=== PATIENT | female | born 1990 ===

== ENCOUNTER → 2019-04-30 | Outpatient (CLI) | payer BC | END | disposition home or self-care (01) | LOC: LABWHC1 16:19 | PROVIDERS: ATTEND Obstetrics & Gynecology | DX: N92.6 Irregular menstruation, unspecified (principal) | CPT/HCPCS: 36415; 84702 ==

== ENCOUNTER → 2019-05-04 | Outpatient (CLI) | payer BC | END | disposition home or self-care (01) | LOC: LABWHC1 13:38 | PROVIDERS: ATTEND Obstetrics & Gynecology | DX: Z32.01 Encounter for pregnancy test, result positive (principal); N91.2 Amenorrhea, unspecified | CPT/HCPCS: 36415; 84702 ==

== ENCOUNTER 2019-11-16 12:16 | Outpatient (CLI) | payer BC ==
[2019-11-16 13:10] LABS: Basophils % (A) 0 %; Eosinophils # (A) 0.1 k/uL (0-0.7); Eosinophils % (A) 1 %; HCT 36.4 % (34.0-46.0); HGB 12.1 gm/dL (11.4-16.0); Lymphocytes # (A) 1.6 k/uL (1.0-4.8); Lymphocytes % (A) 17 %; MCHC 33.2 g/dL (31.0-37.0); MCV 84.3 fL (80.0-100.0); Monocytes # (A) 0.3 k/uL (0-1.0); Monocytes % (A) 4 %; Neutrophils # (A) 7.3 k/uL (1.3-7.7); Neutrophils % (A) 77 %; Platelet Count 217 k/uL (150-450); RBC 4.31 m/uL (3.80-5.40); RDW 14.6 % (11.5-15.5); WBC 9.5 k/uL (3.8-10.6)
[2019-11-16 13:17] LABS: Appearance,Urine Cloudy (Clear); Bacteria,Urine Rare /hpf; Bilirubin,Urine Negative (Negative); Blood,Urine Negative (Negative); Calcium Oxalate Crystals,Urine Rare /hpf; Color,Urine Yellow; Glucose,Urine (UA) Negative (Negative); Ketones,Urine Negative (Negative); Leukocyte Esterase,Urine Negative (Negative); Mucus,Urine Rare /hpf; Nitrite,Urine Negative (Negative); Protein,Urine Trace (Negative); RBC,Urine <1 /hpf (0-5); Specific Gravity,Urine 1.015 (1.001-1.035); Sperm,Urine Rare /hpf; Squamous Epithelial Cell,Urine 3 /hpf (0-4); Urobilinogen,Urine <2.0 mg/dL (<2.0); WBC,Urine 2 /hpf (0-5)
[2019-11-16 13:20] LABS: Protein/Creatinine Ratio,Urine 0.205
[2019-11-16 13:29] LABS: ALT 13 U/L (4-34); AST 19 U/L (14-36); African American GFR (CKD) >90 (>60 ml/min/1.73 sqM); Blood Urea Nitrogen 6 mg/dL (7-17); LDH 411 U/L (313-618); Non-African American GFR(CKD) >90 (>60 ml/min/1.73 sqM); Uric Acid 5.1 mg/dL (3.7-7.4)
--- NOTE | 2019-11-18 09:45 | P.MSEPDOC ---
Presenting Problems - Arrival Data Date of Arrival on Unit: 11/16/19 Time of Arrival on Unit: 12:16 Mode of Transport: Ambulatory - Complaint OB-Reason for Admission/Chief Complaint: PIH Comment: pt sent over from the office by Dr. Argueta for PIH workup as she had some elevated bp's Medical History - Information : 1 Para: 0 Term: 0 : 0 Abortions: Spontaneous or Elective: 0 Number of Living Children: 0 - Gestational Age Gestational Age by MARGARET (wks/days): 31 Weeks and 6 Days - History Complications: GDM Review of Systems - Review of Systems Constitutional: No problems Breast: No problems ENT: No problems Cardiovascular: No problems Respiratory: No problems Gastrointestinal: No problems Genitourinary: No problems Musculoskeletal: No problems Neurological: No problems Skin: No problems Physician Notification (Pre) - Physician Notified Physician Notified Date: 11/16/19 Physician Notified Time: 13:40 New Order Received: Yes - Notification Comment Comment: lab results given to Dr. Argueta, all wnl, only trace protein discharge pt home, follow up with KATELYN on Friday and Dr. Pimentel on Disposition - Disposition OB Disposition: Discharge to home Discharge Date: 11/16/19 Discharge Time: 14:00 I agree with the RN Medical Screening Exam: Yes Risk & Benefit of care provided described in d/c instruction: Yes Diagnosis: GESTATIONAL HTN W/O SIGNIFICANT PROTEINURIA, THIRD TRIMESTER
== END 2019-11-16 14:00 | disposition home or self-care (01) ==
LOC: FBPOP 12:16
PROVIDERS: ATTEND Obstetrics & Gynecology
DX: O13.3 Gestational [pregnancy-induced] hypertension without significant proteinuria, third trimester (principal); Z3A.31 31 weeks gestation of pregnancy
CPT/HCPCS: 59025; 81001; 82565; 82570; 83615; 84156; 84450; 84460; 84520; 84550; 85025

== ENCOUNTER 2019-12-29 16:09 | Inpatient (IN) | payer BC ==
[~2019-12-29 16:09] MED LIST: CHLOROPROCAINE 3% 30 MG/ML 20 ML VIAL ONE; ROPIVACAINE 5MG/ML 20ML VIAL ONE; SODIUM CHLORIDE 0.9% 100 ML BAG ONE; fentaNYL (PF) 50 MCG/ML 5 ML AMP ONE
[2019-12-29] MEDS ORDERED: DINOPROSTONE 10 MG INSERT.ER VAGINAL ONE (16:24)
[2019-12-29 16:37] LABS: Glucose,Whole Blood 130 mg/dL (75-99)
[2019-12-29] MEDS ORDERED: metFORMIN 500 MG TAB PO ONE (21:00)
[2019-12-30] MEDS ORDERED: LIDOCAINE 0.5% (PF) 5 MG/ML (50 ML SDV) SQ PRN (05:00)
[2019-12-30] MEDS ORDERED: TERBUTALINE 1 MG/ML VIAL SQ PRN (05:00)
[2019-12-30] MEDS ORDERED: METHYLERGONOVINE 0.2 MG/ML 1 ML AMP IM PRN (05:00)
[2019-12-30] MEDS ORDERED: CARBOPROST TROMETHAMINE 250 MCG/ML 1 ML AMP IM PRN (05:00)
[2019-12-30] MEDS ORDERED: OXYTOCIN 10 UNIT/ML 1 ML VIAL IM PRN (05:00)
[2019-12-30 05:41] LABS: Glucose,Whole Blood 91 mg/dL (75-99)
[2019-12-30 05:41] LABS: Basophils % (A) 0 %; Eosinophils # (A) 0.1 k/uL (0-0.7); Eosinophils % (A) 1 %; HCT 34.8 % (34.0-46.0); HGB 11.6 gm/dL (11.4-16.0); Lymphocytes # (A) 1.9 k/uL (1.0-4.8); Lymphocytes % (A) 18 %; MCH 27.7 pg (25.0-35.0); MCHC 33.2 g/dL (31.0-37.0); MCV 83.3 fL (80.0-100.0); Mean Platelet Volume 7.9; Monocytes # (A) 0.3 k/uL (0-1.0); Monocytes % (A) 3 %; Neutrophils # (A) 7.8 k/uL (1.3-7.7); Neutrophils % (A) 76 %; Platelet Count 219 k/uL (150-450); RBC 4.17 m/uL (3.80-5.40); RDW 14.7 % (11.5-15.5); WBC 10.3 k/uL (3.8-10.6)
[2019-12-30] MEDS: LACTATED RINGERS 1,000 ML IV SCH ×4 (05:44→23:55)
[2019-12-30] MEDS: OXYTOCIN 30 UNITS/500 ML NS 30 UNIT in SALINE 1 500ML.BAG IV SCH (05:48)
[2019-12-30 07:18] LABS: Glucose,Whole Blood 81 mg/dL (75-99)
[2019-12-30 09:09] LABS: Glucose,Whole Blood 76 mg/dL (75-99)
[2019-12-30 11:26] LABS: Glucose,Whole Blood 72 mg/dL (75-99)
[2019-12-30 13:18] LABS: Glucose,Whole Blood 70 mg/dL (75-99)
[2019-12-30] MEDS: BUTORPHANOL 1 MG/ML 1 ML VIAL IV PRN ×2 (14:36→17:46)
[2019-12-30 14:41] LABS: Glucose,Whole Blood 77 mg/dL (75-99)
[2019-12-30 17:10] LABS: Glucose,Whole Blood 73 mg/dL (75-99)
[2019-12-30 19:08] LABS: Glucose,Whole Blood 67 mg/dL (75-99)
[2019-12-30 21:18] LABS: Glucose,Whole Blood 70 mg/dL (75-99)
[2019-12-30] MEDS ORDERED: CLINDAMYCIN 600 MG in DEXTROSE 5% IN WATER 50 ML IVPB SCH ×2 (21:26)
[2019-12-30] MEDS: CLINDAMYCIN 900 MG in DEXTROSE 5% IN WATER 50 ML IVPB SCH ×2 (22:11)
[2019-12-30 23:42] LABS: Glucose,Whole Blood 77 mg/dL (75-99)
[2019-12-31 01:23] LABS: Glucose,Whole Blood 84 mg/dL (75-99)
[2019-12-31] MEDS: BUTORPHANOL 1 MG/ML 1 ML VIAL IV PRN (02:06)
[2019-12-31 03:55] LABS: Glucose,Whole Blood 75 mg/dL (75-99)
[2019-12-31 06:05] LABS: Glucose,Whole Blood 82 mg/dL (75-99)
[2019-12-31] MEDS: CLINDAMYCIN 900 MG in DEXTROSE 5% IN WATER 50 ML IVPB SCH ×2 (06:05)
[2019-12-31] MEDS: OXYTOCIN 30 UNITS/500 ML NS 30 UNIT in SALINE 1 500ML.BAG IV SCH ×2 (07:35→09:41)
[2019-12-31 07:42] LABS: Glucose,Whole Blood 97 mg/dL (75-99)
--- NOTE | 2019-12-31 08:16 | P.HPOB ---
History of Present Illness H&P Date: 12/29/19 Chief Complaint: Induction of labor, DM, HTN 29 year old presents at 38 weeks for 2 stage induction of labor. Her cervix is closed, thick and -3. heart tones 135 with moderate variability and reactive. She has gestational diabetes on metformin and chronic hypertension on nifedipine. Her blood pressures have been increasing making induction of labor indicated. Review of Systems All systems: negative Constitutional: Denies chills, Denies fever Eyes: denies blurred vision, denies pain Ears, nose, mouth and throat: Denies headache, Denies sore throat Cardiovascular: Denies chest pain, Denies shortness of breath Respiratory: Denies cough Gastrointestinal: Denies abdominal pain, Denies diarrhea, Denies nausea, Denies vomiting Genitourinary: Denies dysuria, Denies hematuria Musculoskeletal: Denies myalgias Integumentary: Denies pruritus, Denies rash Neurological: Denies numbness, Denies weakness Psychiatric: Denies anxiety, Denies depression Endocrine: Denies fatigue, Denies weight change Past Medical History Past Medical History: Diabetes Mellitus, Hypertension Additional Past Medical History / Comment(s): gestational diabetes History of Any Multi-Drug Resistant Organisms: None Reported Past Surgical History: No Surgical Hx Reported Past Anesthesia/Blood Transfusion Reactions: No Reported Reaction Past Psychological History: Unable to Obtain Smoking Status: Never smoker Past Alcohol Use History: None Reported Past Drug Use History: None Reported - Past Family History Mother Family Medical History: Hyperlipidemia, Hypertension Father Family Medical History: Hyperlipidemia, Hypertension Additional Family Medical History / Comment(s): diverticulitis Medications and Allergies Home Medications Medication Instructions Recorded Confirmed Type Aspirin 81 mg PO DAILY 11/16/19 12/29/19 History NIFEdipine [Procardia XL] 60 mg PO DAILY 11/16/19 12/29/19 History metFORMIN HCL [metFORMIN HCL ER 1,000 mg PO DAILY 11/16/19 12/29/19 History Osmotic] Pnv No.95/Ferrous Fum/Folic AC 1 tablet PO DAILY 12/29/19 12/29/19 History [ Multivitamin Tablet] Allergies Allergy/AdvReac Type Severity Reaction Status Date / Time amoxicillin Allergy Rash/Hives Verified 11/16/19 12:24 Exam Osteopathic Statement: *. No significant issues noted on an osteopathic structural exam other than those noted in the History and Physical/Consult. Intake and Output 12/30/19 12/31/19 12/31/19 22:59 06:59 14:59 Other: # Voids 2 2 Heart: Regular rate and rhythm Lungs: Clear to auscultation bilaterally Abdomen: Soft, nontender Extremities: Negative Homans signl Results Result Diagrams: 12/30/19 05:30 Abnormal Lab Results - Last 24 Hours (Table) 12/30/19 12/30/19 12/30/19 Range/Units 11:24 13:16 17:09 POC Glucose (mg/dL) 72 L 70 L 73 L (75-99) mg/dL 12/30/19 12/30/19 Range/Units 19:06 21:17 POC Glucose (mg/dL) 67 L 70 L (75-99) mg/dL Assessment and Plan (1) 38 weeks gestation of Current Visit: Yes Status: Acute Code(s): Z3A.38 - 38 WEEKS GESTATION OF SNOMED Code(s): 66396889 (2) Hypertension Current Visit: Yes Status: Acute Code(s): I10 - ESSENTIAL (PRIMARY) HYPERTENSION SNOMED Code(s): 15522771 (3) Gestational diabetes Current Visit: Yes Status: Acute Code(s): O24.419 - GESTATIONAL DIABETES ME LLITUS IN , UNSP CONTROL SNOMED Code(s): 93541060 Plan: 1. Admit to family place 2. Cervidil placement and then amniotomy and Pitocin the morning 3. Monitor blood sugars 4. Continue blood pressure medicine and monitoring closely
[2019-12-31] MEDS: LACTATED RINGERS 1,000 ML IV SCH (08:47)
[2019-12-31 09:54] LABS: Glucose,Whole Blood 71 mg/dL (75-99)
[2019-12-31 11:40] LABS: Glucose,Whole Blood 75 mg/dL (75-99)
[2019-12-31] MEDS ORDERED: CITRIC ACID-SODIUM CITRATE 15 ML CUP PO ONE (12:05)
[2019-12-31] MEDS ORDERED: ceFAZolin 3 GM in SODIUM CHLORIDE 0.9% 100 ML IVPB ONE (12:05)
[2019-12-31] MEDS ORDERED: MORPHINE SULFATE (PF) 0.3 MG/0.3 ML SYR ONE (12:30)
[2019-12-31] MEDS ORDERED: ONDANSETRON 4 MG/2 ML VIAL ONE (12:30)
[2019-12-31] MEDS ORDERED: OXYTOCIN 10 UNIT/ML 1 ML VIAL ONE (12:30)
[2019-12-31] MEDS ORDERED: KETOROLAC 30 MG/ML 1 ML VIAL ONE (12:30)
[2019-12-31] MEDS ORDERED: diphenhydrAMINE 50 MG/ML 1 ML VIAL IVP PRN ×3 (12:51→13:29)
[2019-12-31] MEDS ORDERED: NALBUPHINE 10 MG/ML (1 ML AMP) IV PRN (12:51)
[2019-12-31] MEDS ORDERED: NALOXONE 0.4 MG/ML 1 ML VIAL IV PRN (12:51)
[2019-12-31] MEDS ORDERED: HYDROmorphone 0.5 MG/0.5 ML SYRINGE IVP PRN (12:51)
[2019-12-31] MEDS ORDERED: ONDANSETRON 4 MG/2 ML VIAL IVP PRN (12:51)
[2019-12-31] MEDS ORDERED: diphenhydrAMINE 50 MG CAP PO PRN (13:29)
[2019-12-31] MEDS ORDERED: ZOLPIDEM 5 MG TAB PO PRN (13:29)
[2019-12-31] MEDS ORDERED: METOCLOPRAMIDE 5 MG/ML 2 ML VIAL IVP PRN (13:29)
[2019-12-31] MEDS ORDERED: HYDROcodone/APAP 7.5-325MG 1 EACH TAB PO PRN (13:29)
[2019-12-31] MEDS ORDERED: LANOLIN CREAM 5 GM TUBE TOPICAL PRN (13:29)
[2019-12-31] MEDS ORDERED: diphenhydrAMINE 25 MG CAP PO PRN (13:29)
[2019-12-31] MEDS ORDERED: SIMETHICONE 80 MG CHEWABLE PO PRN (13:29)
[2019-12-31] MEDS ORDERED: LACTATED RINGERS 1,000 ML IV SCH (13:30)
[2019-12-31] MEDS ORDERED: OXYTOCIN 20 UNITS/1000 ML NS 1,000 ML IV SCH (13:30)
[2019-12-31] MEDS: SENNOSIDES-DOCUSATE SODIUM 1 EACH TAB PO SCH (20:21)
[2019-12-31] MEDS: ceFAZolin 3 GM in SODIUM CHLORIDE 0.9% 100 ML IVPB SCH (20:34)
[2019-12-31] MEDS ORDERED: NIFEdipine XL 30 MG TAB.ER.24 PO PRN (21:17)
[2019-12-31] MEDS: KETOROLAC 30 MG/ML 1 ML VIAL IVP PRN (21:27)
[2020-01-01] MEDS: KETOROLAC 30 MG/ML 1 ML VIAL IVP PRN (03:37)
[2020-01-01] MEDS: ceFAZolin 3 GM in SODIUM CHLORIDE 0.9% 100 ML IVPB SCH (04:59)
[2020-01-01 06:21] LABS: Basophils % (A) 0 %; Eosinophils # (A) 0.1 k/uL (0-0.7); Eosinophils % (A) 1 %; HCT 31.6 % (34.0-46.0); HGB 10.8 gm/dL (11.4-16.0); Lymphocytes # (A) 1.1 k/uL (1.0-4.8); Lymphocytes % (A) 11 %; MCH 29.2 pg (25.0-35.0); MCHC 34.2 g/dL (31.0-37.0); MCV 85.5 fL (80.0-100.0); Mean Platelet Volume 7.9; Monocytes # (A) 0.4 k/uL (0-1.0); Monocytes % (A) 4 %; Neutrophils # (A) 8.5 k/uL (1.3-7.7); Neutrophils % (A) 83 %; Platelet Count 206 k/uL (150-450); RDW 14.7 % (11.5-15.5); WBC 10.3 k/uL (3.8-10.6)
--- NOTE | 2020-01-01 06:51 | P.PN ---
Progress Note - Text Progress Note Date: 01/01/20 Postoperative day 1 status post section under epidural anesthesia, and epidural morphine given for postoperative analgesia, patient doing well, there is no anesthesia related complications, Patient had no headache, vital signs stable , Assessment and plan= postop day 1 status post , doing well there is no anesthesia related complication.
[2020-01-01] MEDS: ACETAMINOPHEN TAB 325 MG TAB PO PRN ×3 (08:03→20:45)
[2020-01-01] MEDS: SENNOSIDES-DOCUSATE SODIUM 1 EACH TAB PO SCH ×2 (08:03→20:46)
--- NOTE | 2020-01-01 08:27 | P.OP ---
Date of Procedure: 12/31/19 Preoperative Diagnosis: 1. at 38 weeks and 2 days 2. Gestational diabetes A2 3. Chronic hypertension 4. Failure to progress Postoperative Diagnosis: 1. at 38 weeks and 2 days 2. Gestational diabetes A2 3. Chronic hypertension 4. Failure to progress Procedure(s) Performed: Primary low transverse Anesthesia: epidural Surgeon: Jodi Argueta Press Setter #1: Kiesha Moran Estimated Blood Loss (ml): 775 IV fluids (ml): 500 Urine output (ml): 200 Pathology: other (Placenta) Condition: stable Disposition: floor Indications for Procedure: 29-year-old presented at 38 weeks for induction of labor. She has gestational diabetes and chronic hypertension that was controlled for most of her until last week with nifedipine 60 mg daily. Her gestational diabetes was controlled with metformin. Cervidil was placed, of 12/29/2019 when she was closed, thick, high. heart tones were 135 with moderate variability and reactive. By the morning her cervix was still fingertip dilated and thick. Pitocin was started. She spontaneously ruptured around 10 AM with clear fluid. heart tones remained category 1. Patient had position changes and Pitocin titration. She did make it to 2 cm and started to get uncomfortable the next morning. Epidural was placed on the morning of 12/31/2019. heart tones remained category 1. By noon on 12/31/2019 she w as still 2 cm dilated. Informed consent was obtained and section was called. Operative Findings: Viable male, Apgars 8, 9, weight 6 lbs. 15 oz. Normal uterus, tubes, ovaries. Description of Procedure: Patient was taken to the operating room where spinal anesthesia was found be adequate. She was prepped and draped in normal sterile fashion in dorsal supine position with a leftward tilt. Pfannenstiel skin incision was made the scalpel and carried through to the underlying layer of fascia with the scalpel. Fascia was incised in midline and carried bilaterally with the Terry scissors. The superior aspect of the fascial incision was grasped with Duane clamps elevated and the underlying rectus muscles dissected off with the Terry's. Attention was then turned to inferior aspect of same incision which in a similar fashion was grasped tented up and the underlying rectus muscles dissected off with the Terry's. The rectus muscles were the midline and the peritoneum was identified tented up and entered sharply with the scalpel. The incision was extended superiorly and inferiorly with good visualization of the bladder. The bladder blade was inserted and the vesicouterine peritoneum was incised the Metzenbaums then carried bilaterally and bladder flap created digitally. A low transverse incision was then made on the uterus with the scalpel. This was carried bilaterally and digital manner. 's head delivered atraumatically, nose and mouth bulb suctioned, cord clamped and cut, infant handed off to waiting nurses. Apgars 8,9, weight 6 lbs. 15 oz. Placenta delivered manually, intact with three-vessel cord. The uterus is exteriorized and cleared of all clots and debris. The uterine incision was closed with 0 Vicryl in a running locked fashion. Second layer of the same sutures used in imbricating fashion. There are a few areas of oozing along the incision, a few figure of 8 stitches were used to obtain excellent hemostasis. Both ovaries and tubes appeared normal. The uterus was placed back into the abdomen. The peritoneum was reapproximated using 2-0 Vicryl in a running fashion. The muscles were reapproximated using 2-0 Vicryl in interrupted fashion. The fascia was reapproximated using 0 Vicryl in a running fashion. The subcutaneous tissues closed with 3-0 Vicryl running fashion. The skin was closed maurilio. Patient tolerated the procedure well, sponge and instrument counts were correct times 2 and she was taken to the recovery room in stable condition.
--- NOTE | 2020-01-01 08:29 | P.PNOBGPC ---
Subjective - Subjective Principal diagnosis: Status post primary low transverse postop day #1 Interval history: Patient seen and examined in her room. She feels very comfortable in tolerating regular diet. She has good bowel sounds but has not passed flatus yet. Her blood pressures overnight were little bit elevated but this morning after her Procardia her blood pressures are normal. Patient reports: Reports appetite normal, Reports voiding normally, Reports pain well controlled, Reports ambulating normally Objective - Vital Signs Latest vital signs: Vital Signs Temp Pulse Resp BP BP BP Pulse Ox 01/01/20 08:00 98.1 F 93 16 134/65 01/01/20 06:08 16 01/01/20 04:54 16 01/01/20 03:33 97.7 F 81 16 139/66 99 01/01/20 03:00 16 01/01/20 01:00 16 12/31/19 23:00 97.9 F 81 16 126/58 98 12/31/19 21:00 16 12/31/19 20:30 164/76 12/31/19 20:00 98.0 F 77 16 174/96 12/31/19 19:00 18 98 12/31/19 17:51 98 12/31/19 17:00 18 98 12/31/19 15:51 16 98 12/31/19 15:22 59 L 16 162/78 12/31/19 14:52 65 18 164/79 97 12/31/19 14:22 69 16 164/77 99 12/31/19 14:07 74 18 158/75 98 12/31/19 13:52 70 16 151/75 99 12/31/19 13:51 18 97 12/31/19 13:37 80 18 141/75 99 12/31/19 13:22 97 F L 79 16 137/64 97 12/31/19 12:51 97 F L 62 18 137/64 97 Intake and Output 12/31/19 01/01/20 01/01/20 22:59 06:59 14:59 Intake Total 480 Output Total 300 300 900 Balance -300 180 -900 Intake: Oral 480 Output: Urine 300 300 900 Uretheral (Dewey) 300 Other: Voiding Method Indwelling Catheter # Voids 1 - Exam Lungs: bilateral: normal Chest: Normal S1, Normal S2 Extremities: Present: normal Abdomen: Present: normal appearance, soft. Absent: distention, tenderness Incision: Present: normal, dry, intact Uterus: Present: normal, firm - Labs Labs: Abnormal Lab Results - Last 24 Hours (Table) 12/31/19 01/01/20 Range/Units 09:44 05:24 RBC 3.70 L (3.80-5.40) m/uL Hgb 10.8 L (11.4-16.0) gm/dL Hct 31.6 L (34.0-46.0) % Neutrophils # 8.5 H (1.3-7.7) k/uL POC Glucose (mg/dL) 71 L (75-99) mg/dL Assessment and Plan (1) 38 weeks gestation of Current Visit: Yes Status: Resolved Code(s): Z3A.38 - 38 WEEKS GESTATION OF SNOMED Code(s): 00548291 (2) Hypertension Current Visit: Yes Status: Acute Code(s): I10 - ESSENTIAL (PRIMARY) HYPERTENSION SNOMED Code(s): 47516304 (3) Gestational diabetes Current Visit: Yes Status: Resolved Code(s): O24.419 - GESTATIONAL DIABETES MELLITUS IN , UNSP CONTROL SNOMED Code(s): 18827473 (4) Status post primary low transverse section Current Visit: Yes Status: Acute Code(s): Z98.891 - HISTORY OF UTERINE SCAR FROM PREVIOUS SURGERY SNOMED Code(s): 680965748 Plan: 1. Increase ambulation 2. Monitor flatus and bowel sounds for regular diet 3. Pain control 4. applications consultant
[2020-01-01] MEDS: IBUPROFEN 600 MG TAB PO PRN ×3 (11:43→23:40)
[2020-01-02] MEDS: ACETAMINOPHEN TAB 325 MG TAB PO PRN ×3 (03:54→16:47)
[2020-01-02] MEDS: IBUPROFEN 600 MG TAB PO PRN ×3 (05:44→20:58)
[2020-01-02] MEDS: SENNOSIDES-DOCUSATE SODIUM 1 EACH TAB PO SCH ×2 (09:22→19:24)
--- NOTE | 2020-01-02 09:43 | P.PNOBGPC ---
Subjective - Subjective Principal diagnosis: Status post primary low transverse postop day #2 Interval history: Patient seen and examined in the nursery holding her . Denies nausea, vomiting, chest pain, shortness of breath or calf pain. Patient reports: Reports appetite normal, Reports voiding normally, Reports pain well controlled, Reports ambulating normally : doing well Objective - Vital Signs Latest vital signs: Vital Signs Temp Pulse Resp BP BP Pulse Ox 01/02/20 08:00 98.9 F 94 16 159/82 01/02/20 00:00 98.2 F 97 16 134/72 97 01/01/20 20:00 98.7 F 102 H 16 141/78 100 01/01/20 16:00 98.5 F 103 H 16 131/83 99 01/01/20 11:50 98.6 F 97 16 135/80 99 Intake and Output 01/01/20 01/02/20 01/02/20 22:59 06:59 14:59 Other: # Voids 1 2 1 - Exam Lungs: bilateral: normal Chest: Normal S1, Normal S2 Extremities: Present: normal Abdomen: Present: normal appearance, soft. Absent: distention, tenderness Incision: Present: normal, dry, intact Uterus: Present: normal, firm Assessment and Plan (1) 38 weeks gestation of Current Visit: Yes Status: Resolved Code(s): Z3A.38 - 38 WEEKS GESTATION OF SNOMED Code(s): 25572192 (2) Hypertension Current Visit: Yes Status: Acute Code(s): I10 - ESSENTIAL (PRIMARY) HYPERTENSION SNOMED Code(s): 16659720 (3) Gestational diabetes Current Visit: Yes Status: Resolved Code(s): O24.419 - GESTATIONAL DIABETES MELLITUS IN , UNSP CONTROL SNOMED Code(s): 41624233 (4) Status post primary low transverse section Current Visit: Yes Status: Acute Code(s): Z98.891 - HISTORY OF UTERINE SCAR FROM PREVIOUS SURGERY SNOMED Code(s): 285568999 Plan: 1. Increase ambulation 2. Continue Pain control with Tylenol and Motrin
[2020-01-02 23:13] VITALS: RESP 16
[2020-01-03] MEDS: ACETAMINOPHEN TAB 325 MG TAB PO PRN (01:11)
[2020-01-03] MEDS: IBUPROFEN 600 MG TAB PO PRN (06:55)
[2020-01-03 08:18] VITALS: BP 141/72; PULSE 83; TEMP 98.2
--- NOTE | 2020-01-03 08:38 | P.DS ---
Providers Date of admission: 12/29/19 16:09 Expected date of discharge: 01/03/20 Attending physician: Jodi Argueta Primary care physician: Stated None - Discharge Diagnosis(es) (1) 38 weeks gestation of Current Visit: Yes Status: Resolved (2) Hypertension Current Visit: Yes Status: Acute (3) Gestational diabetes Current Visit: Yes Status: Resolved (4) Status post primary low transverse section Current Visit: Yes Status: Acute Hospital Course: Patient presented for induction of labor. She underwent a primary low transverse . course was uncomplicated. She'll be discharged home day #3 in stable condition follow-up with me in one week. Plan - Discharge Summary New Discharge Prescriptions: New Ibuprofen [Motrin] 600 mg PO Q6HR PRN #30 tab PRN Reason: Mild Pain Or Fever >= 100.5 No Action metFORMIN HCL [metFORMIN HCL ER Osmotic] 1,000 mg PO DAILY Aspirin 81 mg PO DAILY NIFEdipine [Procardia XL] 60 mg PO DAILY Pnv No.95/Ferrous Fum/Folic AC [ Multivitamin Tablet] 1 tablet PO DAILY Discharge Medication List Aspirin 81 mg PO DAILY 11/16/19 [History] NIFEdipine [Procardia XL] 60 mg PO DAILY 11/16/19 [History] metFORMIN HCL [metFORMIN HCL ER Osmotic] 1,000 mg PO DAILY 11/16/19 [History] Pnv No.95/Ferrous Fum/Folic AC [ Multivitamin Tablet] 1 tablet PO DAILY 12/29/19 [History] Ibuprofen [Motrin] 600 mg PO Q6HR PRN #30 tab 01/03/20 [Rx] Follow up Appointment(s)/Referral(s): Jodi Argueta DO [Doctor of Osteopathic Medicine] - 1 Week Discharge Disposition: HOME SELF-CARE
== END 2020-01-03 11:24 | disposition home or self-care (01) | DRG 788 ==
LOC: 4FBP 16:09
PROVIDERS: ADMIT Obstetrics & Gynecology; ATTEND Obstetrics & Gynecology
PROC: 3E0P7VZ Introduction of Hormone into Female Reproductive, Via Natural or Artificial Opening (ICD-10-PCS; 2019-12-30)
PROC: 10D00Z1 Extraction of Products of Conception, Low, Open Approach (ICD-10-PCS; principal; 2019-12-31 11:54)
PROC: 3E0R3BZ Introduction of Anesthetic Agent into Spinal Canal, Percutaneous Approach (ICD-10-PCS; principal; 2019-12-31 11:54)
PROC: 3E033VJ Introduction of Other Hormone into Peripheral Vein, Percutaneous Approach (ICD-10-PCS; principal; 2019-12-31 11:54)
PROC: 00HU33Z Insertion of Infusion Device into Spinal Canal, Percutaneous Approach (ICD-10-PCS; principal; 2019-12-31 11:54)
DX: O10.92 Unspecified pre-existing hypertension complicating childbirth (principal); O24.425 Gestational diabetes mellitus in childbirth, controlled by oral hypoglycemic drugs; K21.9 Gastro-esophageal reflux disease without esophagitis; O62.2 Other uterine inertia; O99.62 Diseases of the digestive system complicating childbirth; Z37.0 Single live birth; Z3A.38 38 weeks gestation of pregnancy; Z79.84 Long term (current) use of oral hypoglycemic drugs; Z79.82 Long term (current) use of aspirin; Z79.899 Other long term (current) drug therapy; Z88.0 Allergy status to penicillin; Z83.49 Family history of other endocrine, nutritional and metabolic diseases; Z82.49 Family history of ischemic heart disease and other diseases of the circulatory system; Z83.79 Family history of other diseases of the digestive system
CPT/HCPCS: 85025; 86850; 86900; 86901; 88307